=== PATIENT | female | born 1950 | race Caucasian/White ===

== ENCOUNTER 2017-07-29 13:39 | Emergency (ER) | payer OTHER ==
[~2017-07-29] VITALS: Ht 165.1 cm; Wt 67.9 kg
[~2017-07-29 13:39] MED LIST: ALBU1AER9 PO; ATEN-173 PO; DICL-201 PO; FLNIN NAE
[2017-07-29 13:45] VITALS: TEMP 36.7; Ht 165.1 cm; Wt 67.9 kg
[2017-07-29] MEDS ORDERED: XYLOCAINE 1%/SOD BICARB 20 ML VIAL INFIL ONE (14:15)
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
--- NOTE | 2017-07-29 14:20 | EMERGENCY ROOM VISIT NOTE ---
ED Visit Note First contact with patient: 13:50 I have personally seen and evaluated the patient with the physician family medicine physician assistant. I agree with the diagnostic/management decisions and have personally been involved in these decisions and agree with the diagnosis.
[2017-07-29 15:22] VITALS: BP 188/113; PULSE 65; O2SAT 96
== END 2017-07-29 15:23 | disposition home or self-care (01) ==
LOC: C.EDB 13:41 → C.EDD 15:23
DX: S61.211A Laceration without foreign body of left index finger without damage to nail, initial encounter (principal); W45.8XXA Other foreign body or object entering through skin, initial encounter; Y92.89 Other specified places as the place of occurrence of the external cause; Y99.0 Civilian activity done for income or pay; I10 Essential (primary) hypertension; D68.51 Activated protein C resistance; Z87.828 Personal history of other (healed) physical injury and trauma; Z79.899 Other long term (current) drug therapy; Z88.0 Allergy status to penicillin

== ENCOUNTER 2017-08-06 14:21 | Emergency (ER) | payer OTHER ==
[~2017-08-06] VITALS: Ht 165.1 cm; Wt 67.5 kg
[2017-08-06 14:23] VITALS: TEMP 36.7; Ht 165.1 cm; Wt 67.5 kg
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
[2017-08-06 14:54] VITALS: BP 169/97; PULSE 76; O2SAT 97
[2017-08-06] MEDS ORDERED: TNR25 PO (14:54)
[2017-08-06] MEDS ORDERED: GABA1CAP4 PO (14:54)
[2017-08-06] MEDS ORDERED: ASPI325T39 PO (14:54)
== END 2017-08-06 14:50 | disposition home or self-care (01) ==
LOC: C.EDB 14:22 → C.EDD 14:50
DX: S61.213D Laceration without foreign body of left middle finger without damage to nail, subsequent encounter (principal); X58.XXXD Exposure to other specified factors, subsequent encounter; I10 Essential (primary) hypertension; Z79.82 Long term (current) use of aspirin

== ENCOUNTER 2020-04-09 17:15 | Inpatient (IN) ==
[~2020-04-09 17:15] MED LIST changes: -ALBU1AER9 PO; -ATEN-173 PO; +ATROPINE SO4 1 MG/ML 1ML VIAL ONE; -DICL-201 PO; -FLNIN NAE
[2020-04-09] MEDS ORDERED: NiCARDipine HCL INJ 2.5 MG/ML 10 ML AMP ONE (17:26)
[2020-04-09] MEDS ORDERED: RAPID SEQUENCE INDUCTION BAG ONE (17:26)
[2020-04-09] MEDS ORDERED: HEPARIN (PORCINE) 1000 UNIT/ML 10 ML (CATH LAB USE ONLY) ONE (17:26)
[2020-04-09] MEDS ORDERED: fentaNYL citrate 100 MCG/2 ML VIAL ONE ×2 (17:27→18:13)
[2020-04-09] MEDS ORDERED: MIDAZOLAM HCL 1 MG/ML 2ML VIAL ONE ×2 (17:27→18:13)
[2020-04-09] MEDS ORDERED: NITROGLYCERIN/D5W 100MCG/ML 20ML SYR ONE (17:27)
[2020-04-09 17:32] LABS: Hematocrit (blood only) 40.4 % (37-47); Hemoglobin 13.8 g/dL (12.0-16.0); Mean Corpuscular Hemoglobin 31.2 pg (25-34); Mean Corpuscular Hgb Conc 34.2 g/dL (32-36); Mean Corpuscular Volume 91.2 fL (80-100); Mean Platelet Volume 11.4 fL (7.4-10.4); Platelet Count 378 K/uL (130-400); RDW Coefficient of Variation 13.4 % (11.5-14.5); RDW Standard Deviation 44.7 fL (36.4-46.3); Red Blood Count 4.43 M/uL (4.2-5.4); White Blood Count 12.08 K/uL (4.8-10.8)
[2020-04-09] MEDS ORDERED: LIDOCAINE HCL/D5W 2000 MG/500 ML BAG IV ONE (17:47)
[2020-04-09 17:49] LABS: Alanine Aminotransferase 29 U/L (12-78); Albumin Level 3.8 gm/dl (3.4-5.0); Aspartate Aminotransferase 16 U/L (15-37); BUN Creatinine Ratio 13.9 (10-20); Blood Urea Nitrogen 14 mg/dl (7-18); Calcium 9.2 mg/dl (8.5-10.1); Carbon Dioxide 23 mmol/L (21-32); Chloride 106 mmol/L (98-107); Est GFR (African American) 66.2; Est GFR (Non-African American) 57.2; Glucose 127 mg/dl (70-99); Lipase 291 U/L (73-393); Magnesium 2.3 mg/dl (1.8-2.4); Potassium 3.9 mmol/L (3.5-5.1); Sodium 139 mmol/L (136-145)
[2020-04-09] MEDS ORDERED: EPINEPHrine INJ 1 MG/ML AMP ONE (17:49)
[2020-04-09] MEDS ORDERED: NOREPINEPHRINE BITARTRATE 1 MG/ML 4 ML VIAL (CATH LAB USE ONLY) ONE ×3 (17:54→19:45)
[2020-04-09 17:59] LABS: Basophils # (auto) 0.06 K/uL (0-0.2); Basophils % (auto) 0.5 %; Eosinophils # (auto) 0.79 K/uL (0-0.5); Eosinophils % (auto) 6.5 %; Immature Granulocytes # (auto) 0.02 K/uL (0.00-0.02); Immature Granulocytes % (auto) 0.2 %; Lymphocytes # (auto) 5.97 K/uL (1.2-3.4); Lymphocytes % (auto) 49.4 %; Monocytes # (auto) 0.79 K/uL (0.11-0.59); Monocytes % (auto) 6.5 %; Neutrophils # (auto) 4.45 K/uL (1.4-6.5); Neutrophils % (auto) 36.9 %
[2020-04-09] MEDS ORDERED: AMIODARONE 150MG / 100ML D5W (CATH LAB USE ONLY) ONE (17:59)
[2020-04-09 18:01] LABS: Alkaline Phosphatase 97 U/L (45-117); Bilirubin,Total 0.2 mg/dl (0.2-1); Creatine Kinase 64 U/L (26-192); Creatine Kinase MB < 1.0 ng/ml (0.5-3.6); Globulin 3.9 gm/dl (2.5-4.0); Total Protein 7.7 gm/dl (6.4-8.2); Troponin I < 0.015 ng/ml (0-0.045)
--- NOTE | 2020-04-09 18:02 | Emergency Department Note ---
History of Present Illness General Stated complaint: HEART ALERT Source: patient and EMS Mode of arrival: EMS History of Present Illness Provider complaint: Chest pain Onset (ago): hour(s) (3:30 PM today while at work) Location: chest Radiation: non-radiation Severity: moderate Maximum Pain Intensity: 7 Current Pain Intensity: 6 Quality: + other (Tightness) Relieved By: + none Associated symptoms: + shortness of breath and + weakness; no cough, no fever/chills and no headaches This is a 70-year-old female with a history of hypertension and COPD who is a current smoker who presents with chest pain. She states the chest pain started at 3:30 PM today while at work. She describes it as a tightness in the middle of her chest without radiation. She has associated shortness of breath with it. She states it was 7 out of 10 in severity and she felt lightheaded as well. She felt as if she was going to pass out earlier today. She was given 25 mcg of fentanyl IV and Zofran IV in the ambulance. She was given another dose of 25 mcg of fentanyl IV subsequently. He stated that the pain was not much relieved and is currently a 6 out of 10. She denies any fever, cough or cold symptoms, known exposure to COVID-19, leg pain or swelling, abdominal pain or previous cardiac history. Home Medications Home Medications Medication Instructions Recorded Confirmed Type albuterol sulfate [ProAir HFA] 1 puff INHALATION Q6H PRN 06/15/19 11/27/19 History gabapentin 600 mg PO HS 06/15/19 11/27/19 History atenolol 50 mg PO DAILY 11/27/19 11/27/19 History tramadol 50 mg PO Q8H PRN #7 tab 11/28/19 Rx Allergies Allergy/AdvReac Type Severity Reaction Status Date / Time amoxicillin Allergy Mild RASH Verified 11/27/19 20:30 cefdinir Allergy Verified 11/27/19 20:30 diclofenac Allergy Verified 11/27/19 20:30 losartan Allergy Verified 11/27/19 20:30 Past Med/Surg History Medical History Chronic obstructive pulmonary disease inhaler prn Factor 5 Leiden mutation, heterozygous Hypertension (Acute) Nerve damage in neck---reason for gabapentin Surgical History History of laparoscopy History of left cataract surgery History of tooth extraction all teeth History of total hysterectomy with bilateral salpingo-oophorectomy (BSO) Status post decompression of ulnar nerve at elbow left Family History Daughter Family history of diabetes mellitus Hypertension Stroke Father Family hx of colon cancer Heart disease Colorectal cancer Mother Heart disease Breast cancer Other No family history of adverse response to anesthesia No family history of bleeding disorder Social History Preferred Language: Kenyan Communication Ability: Effective Professor Of Forestry Required: No Beliefs That Will Affect Care: None marital status: Current Living Situation: Spouse current occupational status: employed 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 and A total of 10 systems reviewed and were otherwise negative Physical Exam Vital Signs Vital Signs - 24 hr 04/09/20 17:53 04/09/20 17:54 04/09/20 18:14 Respiratory Rate 14 14 Fraction of Inspired Oxygen 100 100 Sepsis Recent Fever Within 48 Hours No Sepsis New/Unexplained Change in Mental Status No Sepsis Action Taken by Nursing No Action Required 04/09/20 18:50 04/09/20 19:20 Respiratory Rate 20 20 Fraction of Inspired Oxygen 100 Sepsis Recent Fever Within 48 Hours Sepsis New/Unexplained Change in Mental Status Sepsis Action Taken by Nursing Constitutional: Vital signs reviewed. Eyes: Pupils are equal round reactive to light. Conjunctiva are noninjected. ENT: Pharynx is clear without erythema or exudate. Mucous membranes are moist. Upper dentures. Neck supple without meningeal signs. Respiratory: Clear to auscultation bilaterally. Breath sounds are equal bilaterally. Cardiovascular: Regular rate and rhythm. No rubs or gallops. GI: Soft, nondistended and nontender. Bowel sounds are present. Musculoskeletal: No peripheral edema. No lower extremity tenderness. Integumentary: No cyanosis. or jaundice. She is pale. Neurological: The patient is awake and alert. No focal deficits. Psychiatric: Anxious appearing. Procedures Intubation Time out performed: No sedative: none paralytic: Succinylcholine Mg Given: 120 Laryngoscope: other ([place] scope) ET Tube Size: 7.5 ET Tube Uncuffed: No Tube Secured Depth (cm): 23 Tube Secured Location: lips Tube Placement Confirmation: visualized tube passing through cords, equal breath sounds bilaterally and confirmation by capnometry (Color) Patient Tolerated Procedure: no complications Intubation Complications: none Course Administered Medications Discontinued Medications Atropine Sulfate (Atropine Sulfate 1mg/Ml) Confirm Administered Dose 1 mg .ROUTE .STK-MED ONE Stop: 04/09/20 17:16 Last Admin: 04/09/20 17:50 Dose: Not Given Documented [place]: [id number] Lorazepam (Ativan) 1 mg in 2 mls @ 2 mls/min IV NOW STA Stop: 04/09/20 20:19 Last Admin: 04/09/20 20:48 Dose: 2 mls/min Documented by: [id number] Morphine Sulfate (Morphine Sulfate) Confirm Administered Dose 4 mg .ROUTE .STK- MED ONE Stop: 04/09/20 20:24 Last Admin: 04/09/20 20:36 Dose: 4 mg Documented by: [id number] Medical Decision Making Differential Diagnosis STEMI, ACS, CHF, inferior NJ, V. fib arrest Medical Records Attestation: I reviewed the patient's medical records. I did perform a limited focused review of portions of the patient's old chart on the electronic medical record. The patient has had no recent pertinent visits to this hospital. The patient was seen here earlier this year for flank pain. Home Medications Current Medication List: was personally reviewed by me Laboratory Data Attestation: I reviewed the patient's lab results. Result diagrams: 04/09/20 16:59 04/09/20 16:59 Lab Results 04/09/20 04/09/20 04/09/20 Range/Units 16:59 16:59 16:59 WBC 12.08 H (4.8-10.8) K/uL RBC 4.43 (4.2-5.4) M/uL Hgb 13.8 (12.0-16.0) g/dL POC Hgb (12.0-16.0) g/dl Hct 40.4 (37-47) % POC Hct (37-47) % MCV 91.2 (80-100) fL MCH 31.2 (25-34) pg MCHC 34.2 (32-36) g/dL RDW Std Deviation 44.7 (36.4-46.3) fL RDW Coeff of Juan Jose 13.4 (11.5-14.5) % Plt Count 378 (130-400) K/uL MPV 11.4 H (7.4-10.4) fL Immature Gran % (Auto) 0.2 % Neut % (Auto) 36.9 % Lymph % (Auto) 49.4 % Bel[place] % (Auto) 6.5 % Eos % (Auto) 6.5 % Baso % (Auto) 0.5 % Immature Gran # (Auto) 0.02 (0.00-0.02) K/uL Neut # (Auto) 4.45 (1.4-6.5) K/uL Lymph # (Auto) 5.97 H (1.2-3.4) K/uL [place] # (Auto) 0.79 H (0.11-0.59) K/uL Eos # (Auto) 0.79 H (0-0.5) K/uL Baso # (Auto) 0.06 (0-0.2) K/uL PT Cancelled INR Cancelled APTT Cancelled PTT Ratio Cancelled POC pH (7.35-7.45) POC pCO2 (35-46) mmHg POC pO2 (80-95) mmHg POC HCO3 (19-24) luis/L POC Total CO2 (24-31) mmol/L POC Base Excess (-9-1.8) luis/L POC ABG O2 Sat (90-95) % POC Sodium (135-144) mmol/L Sodium 139 (136-145) mmol/L POC Potassium (3.3-5.0) mmol/L Potassium 3.9 (3.5-5.1) mmol/L Chloride 106 (98-107) mmol/L Carbon Dioxide 23 (21-32) mmol/L Anion Gap 10.0 (3-11) BUN 14 (7-18) mg/dl Creatinine 1.01 (0.6-1.2) mg/dl Est Cr Clr Drug Dosing Not Reportable Est GFR ( Amer) 66.2 Est GFR (Non-Af Amer) 57.2 BUN/Creatinine Ratio 13.9 (10-20) Glucose 127 H (70-99) mg/dl Calcium 9.2 (8.5-10.1) mg/dl Magnesium 2.3 (1.8-2.4) mg/dl Total Bilirubin 0.2 (0.2-1) mg/dl AST 16 (15-37) U/L ALT 29 (12-78) U/L Alkaline Phosphatase 97 (45-117) U/L Total Creatine Kinase 64 (26-192) U/L CK-MB (CK-2) < 1.0 (0.5-3.6) ng/ml CK/CKMB % Calc TNP POC Troponin I (0-0.045) ng/ml Troponin I < 0.015 (0-0.045) ng/ml Total Protein 7.7 (6.4-8.2) gm/dl Albumin 3.8 (3.4-5.0) gm/dl Globulin 3.9 (2.5-4.0) gm/dl Albumin/Globulin Ratio 1.0 (0.9-2) Lipase 291 (73-393) U/L TSH 5.610 H (0.300-4.500) uIu/ml Free T4 1.21 (0.8-1.6) ng/dl 04/09/20 04/09/20 Range/Units 17:23 19:18 WBC (4.8-10.8) K/uL RBC (4.2-5.4) M/uL Hgb (12.0-16.0) g/dL POC Hgb 7.1 L (12.0-16.0) g/dl Hct (37-47) % POC Hct 21 L (37-47) % MCV (80-100) fL MCH (25-34) pg MCHC (32-36) g/dL RDW Std Deviation (36.4-46.3) fL RDW Coeff of Juan Jose (11.5-14.5) % Plt Count (130-400) K/uL MPV (7.4-10.4) fL Immature Gran % (Auto) % Neut % (Auto) % Lymph % (Auto) % [place] % (Auto) % Eos % (Auto) % Baso % (Auto) % Immature Gran # (Auto) (0.00-0.02) K/uL Neut # (Auto) (1.4-6.5) K/uL Lymph # (Auto) (1.2-3.4) K/uL [place] # (Auto) (0.11-0.59) K/uL Eos # (Auto) (0-0.5) K/uL Baso # (Auto) (0-0.2) K/uL PT INR APTT PTT Ratio POC pH 6.84 L* (7.35-7.45) POC pCO2 104 H (35-46) mmHg POC pO2 61 L (80-95) mmHg POC HCO3 18 L (19-24) luis/L POC Total CO2 21 L (24-31) mmol/L POC Base Excess -16.0 L (-9-1.8) luis/L POC ABG O2 Sat 64.0 L (90-95) % POC Sodium 148 H (135-144) mmol/L Sodium (136-145) mmol/L POC Potassium 3.4 (3.3-5.0) mmol/L Potassium (3.5-5.1) mmol/L Chloride (98-107) mmol/L Carbon Dioxide (21-32) mmol/L Anion Gap (3-11) BUN (7-18) mg/dl Creatinine (0.6-1.2) mg/dl Est Cr Clr Drug Dosing Est GFR ( Amer) Est GFR (Non-Af Amer) BUN/Creatinine Ratio (10-20) Glucose (70-99) mg/dl Calcium (8.5-10.1) mg/dl Magnesium (1.8-2.4) mg/dl Total Bilirubin (0.2-1) mg/dl AST (15-37) U/L ALT (12-78) U/L Alkaline Phosphatase (45-117) U/L Total Creatine Kinase (26-192) U/L CK-MB (CK-2) (0.5-3.6) ng/ml CK/CKMB % Calc POC Troponin I 0.03 (0-0.045) ng/ml Troponin I (0-0.045) ng/ml Total Protein (6.4-8.2) gm/dl Albumin (3.4-5.0) gm/dl Globulin (2.5-4.0) gm/dl Albumin/Globulin Ratio (0.9-2) Lipase (73-393) U/L TSH (0.300-4.500) uIu/ml Free T4 (0.8-1.6) ng/dl ECG Data Attestation: I personally reviewed and interpreted this ECG as follows: Indication: + chest pain Rate (beats per minute): 64 Rhythm: + normal sinus ECG Intervals/blocks: no Left bundle branch block ECG ST segments: + ST depression (Lateral) and + ST elevation (Inferior, anterior) ECG Findings: no PVCs Blood Pressure Blood Pressure Findings: Low blood pressure MDM Narrative I did provide prehospital medical command for the patient. The patient was given IV fentanyl 50 mcg and IV Zofran and 500 cc normal saline IV per my orders. I did call an immediate heart alert. I did immediately evaluate the patient on arrival as noted above. She is complaining of central chest pain she describes as a tightness. I did order a continuous cardiac monitoring. Cardiac monitoring: Indication: Chest pain and bradycardia Rate and rhythm: Normal sinus rhythm with a rate of 62 that deteriorated to ventricular tachycardia and then V. fib arrest. I did order and personally review the patient's 12-lead EKG as described above. She has ST elevations in the inferior and anterior leads with ST depressions in the high lateral leads. This is consistent with a STEMI. After the EKG was obtained the patient stated that she felt like she was in a pass out. She then went into ventricular tachycardia and then ventricular fibrillation. I immediately started chest compressions. The nurses placed pads on her and I did perform defibrillation. I did use 300 J. I did defibrillate her 4 times during her resuscitation. She briefly would have ROSC and then would immediately go into ventricular fibrillation. She would start to wake up briefly with chest compressions and then passed out as soon as they stopped. She was was given multiple doses of IV epinephrine during the resuscitation. She was placed on the Tl device. I also treated her with amiodarone 300 mg IV. I did perform rapid sequence intubation. I did order and review the patient's blood work as noted in the electronic medical record. Her White blood cell count was slightly elevated. Electrolytes are unremarkable. POC troponin is negative. Dr. Stokes of cardiology did arrive in the emergency department. He did take her to the cardiac catheterization lab emergently. I did escort her to the cardiac catheterization lab and stayed with her until Dr. Stokes arrived. I did hold CPR briefly and she was bradycardic in the 30s with no pulse and we resumed CPR with the Tl. Impression & Plan ST elevation (STEMI) myocardial infarction, Cardiopulmonary arrest, Ventricular fibrillation Discharge Plan Visit Data *Final* Discharge Date/Time: 04/09/20 17:45 Stated Complaint: HEART ALERT ED Provider: Raleigh Perez Discharge Problem: ST elevation (STEMI) myocardial infarction, Cardiopulmonary arrest, Ventricular fibrillation Patient Disposition: Still a Patient Discharge Instructions Interventions: ED Discharge Assessment Last Done: 04/09/20 17:45 Discharge Problem: ST elevation (STEMI) myocardial infarction Qualifiers: Involved coronary artery: unspecified coronary artery Qualified Code(s): I21.3 - ST elevation (STEMI) myocardial infarction of unspecified site
[2020-04-09 18:14] LABS: T4 Free Thyroxine 1.21 ng/dl (0.8-1.6)
[2020-04-09] MEDS ORDERED: VASOPRESSION #-# Do NOT Titrate #-# Option IV SCH (18:30)
[2020-04-09] MEDS ORDERED: SODIUM BICARB 8.4% INJ 50 MEQ/50 ML SYR ONE (18:49)
[2020-04-09] MEDS ORDERED: DOBUTamine 500MG / 250ML D5W (CATH LAB USE ONLY) ONE (18:58)
[2020-04-09 19:31] LABS: iSTAT Arterial Blood Gas HCO3 18 meg/L (19-24); iSTAT Arterial Blood Gas pCO2 104 mmHg (35-46); iSTAT Arterial Blood Gas pH 6.84 (7.35-7.45); iSTAT Arterial Blood Gas pO2 61 mmHg (80-95); iSTAT Carbon Dioxide 21 mmol/L (24-31); iSTAT Hematocrit 21 % (37-47); iSTAT Hemoglobin 7.1 g/dl (12.0-16.0); iSTAT Potassium 3.4 mmol/L (3.3-5.0); iSTAT Sodium 148 mmol/L (135-144)
--- NOTE | 2020-04-09 20:07 | Cardiac Catheterization ---
ACC Data: [facility] Cardiac Status Clinical evaluation leading to the procedure CAD Presenation: STEMI Anginal Classification: CCS IV Heart Failure: NYHA Class: CCS III Cardiogenic Shock within 24 Hours: Yes Cardiac Arrest within 24 Hours: Yes Imaging Studies Past 6 Months: No Stress Studies Past 6 Months: No Diagnostic Physicians Name: Brando Stokes MD Status: Emergency Closure Device Percutaneous Entry Location: Femoral Recommendations: PCI without planned CABG PCI Indication: Immediate PCI for STEMI Lesion Segment Name: mid RCA Culprit Artery: Yes Stenosis Prior to Rx (%): 100 Chronic Total Occlusion: No IVUS: No FFR: No Pre-Procedure SABIHA Flow: 0 Previously Treated Lesion: No Lesion Complexity: Non-High/Non-C Lesion Length (mm): 12 Thrombus Present: Yes Bifurcation Lesion: No Guidewire Across Lesion: No Lesion #2 Segment Name: mid circumflex Culprit Artery: No Stenosis Prior to Rx (%): 95 Chronic Total Occlusion: No IVUS: No FFR: No Pre-Procedure SABIHA Flow: 3 Previously Treated Lesion: No Lesion Complexity: Non-High/Non-C Lesion Length (mm): 12 Thrombus Present: No Bifurcation Lesion: No Guidewire Across Lesion: Yes Stenosis Post-Procedure (%): 0 Post-Procedure SABIHA Flow: 3 Devices(s) Deployed: Yes Intraprocedure Events Significant Disection: No Perforation: No Cardiac Cath Procedure Full Procedure Date April 09, 2020 Pre-Procedure Diagnosis Pre-Procedure Diagnosis: STEMI AUC Score AUC Score: 9 Post-Procedure Diagnosis Post-Procedure Diagnosis: Severe CAD Procedure(s) Performed Procedure(s) Performed: Coronary Angiography, Left Heart Cath, Drug Eluting Stent, Temporary Pacemaker, CPR, Defibrillation, Femoral Artery Angiography and Procedure (Impella CP placement) Double Reamer Operator Brando Stokes MD Nursing Educator(s) Neo Estimated Blood Loss Estimated Blood Loss: 20 Medication(s) Medication(s): Epinephrine, Heparin, Norepinephrine and Versed Medication(s): Vasopressin, dobutamine, sodium bicarbonate, calcium chloride, amiodarone, lidocaine Summary of Findings Indication: STEMI/Heart Alert Inferior GA with cardiac arrest in emergency department. Patient in refractory VT despite amiodarone, multiple defibrillations with CPR being performed by Philip as device on arrival to [facility] Access: 6 Fr right common femoral artery, 6 Fr left common femoral artery, 6 Fr right common femoral vein Catheters: JR4 guide, diagnostic JL4, EBU 3.5 guide, pigtail Findings: LM -medium caliber, calcified, luminal irregularities LAD -small caliber, diffuse mild proximal disease, severe diffuse up to 90% earlymid disease, 95% focal latemid stenosis, 95% distal LAD stenosis prior to vessel wrapping around apex. First diagonal with diffuse proximal disease Circumflex -medium caliber vessel, 95% focal distal stenosis RCA -dominant, medium caliber, 100% earlymid acute occlusion -- PCI -- Antithrombotic therapy: Heparin Procedure: Continued CPR Via Tl device. Right common femoral artery access obtained with 6 Fr sheath placed. Right WATERSHED MANAGER angiography revealed suitable vessel for follow-up. While prepping for Impella patient remained in VF despite additional defibrillation attempts, epi, lidocaine and additional amiodarone. Continued on lidocaine drip 14 Fr sheath placed and aortic valve crossed with pigtail. Heparin to ACT greater than 250 Impella CP placed across the aortic valve. Initially on auto level with suction alarms and cardiac output around 1. RCA cannulated with JR4 guide from left common femoral artery Bacteriology Teacher 50 wire passed across mid RCA lesion into distal vessel Mid RCA lesion predilated with 2.5 compliant balloon Dilated lesion stented with 2.75 x 33 mm Xience Carina drug-eluting stent Stent post-dilated with stent balloon. Stent well expanded with SABIHA-3 flow throughout RCA Post reestablished RCA flow did have return of bradycardic rhythm. Aortic pressures remain flat without pulsatility with maps in the 40s to 50s. Continued on epinephrine, norepinephrine, lidocaine infusions along with aggressive fluid resuscitation. Right common femoral vein access obtained and temporary pacing wire placed into RV. Angiography of left system revealed severe distal circumflex as well as multiple severe sequential lesions and LAD Left main cannulated with EBU 3.5 guide Bacteriology Teacher 50 wire placed into distal circumflex Distal circumflex stented with 2.5 x 15 mm Diego drug-eluting stent Able to increase Impella gradually to P8 with cardiac outputs up to 3.0 Bacteriology Teacher 50 wire removed from circumflex and placed down LAD Mid LAD and distal LAD lesions dilated with 2.0 and 2.5 balloon Mid LAD lesion stented with 2.25 x 12 mm Kingsley drug-eluting stent Proximal to mid LAD stented with 2.5 x 30 mm Diego drug-eluting stent Post stenting stents well expanded. SABIHA-3 flow with moderate residual distal LAD stenosis post angioplasty Despite revascularization and improve cardiac output via Impella minimal pulsatility noted on arterial tracings. Blood gases consistent with severe metabolic and respiratory acidosis. Persistent hypoxia despite 100% O2 and escalating PEEP. Patient noted to have fixed, dilated pupils was unresponsive to any stimul In the setting of prolonged V. fib arrest/inadequate perfusion, profound cardiogenic shock with multiorgan failure, apparent anoxic brain injury comfort measures were opted for after discussion with patient's . Impella was turned off and patient transported to ICU for additional comfort care. Summary: 1. Inferior STEMI 2. Cardiac arrest with refractory VF 3. Cardiogenic shock 4. Acute 100% earlymid RCA occlusion 5. Severe non-culprit multivessel CAD -80% earlymid LAD, 95% latemid, 95% distal LAD -95% distal circumflex 6. Hypoxic and hypercarbic respiratory failure 7. Complete heart block 8. Anoxic brain injury 9. Metabolic acidosis 10. Placement of Impella CP device 11. Transvenous temporary pacemaker placement 12. PCI of mid RCA with single JUAN (2.75 x 33 mm Xience Carina drug-eluting stent) 13. PCI of distal circumflex with single JUAN (2.5 x 15 mm Diego drug-eluting stent) 14. PCI of proximal to mid LAD (2.5 x 30 mm Diego), latemid LAD (2.25 x 15 Diego). -Angioplasty of distal LAD with 2.5 balloon Recommendations: Comfort care in accordance with patient/family wishes Hemodynamics Rest Ao:: -- Final Ao: -- LV: -- Recommendations Recommendations: PCI without planned CABG Specimens Specimens: None Radiation Exposure (mGy) 1428 Contrast (mls) 135 Disposition ICU I attest to the content of the Intraoperative Record and any orders documented therein. Any exceptions are noted below. copygramG Card Cath Procedure Codes Cardiac Catheterization Procedure 1: Cardiovascular Cath Procedures: 47294 Coronaries and LHC (+/-LV) Therapeutic Services & Ancillary Proc Procedure 1: Cardiovascular Tx and Anc Procedures: 15413 Insertion of Percutaneous Ventricular Assist Device Procedure 2: Cardiovascular Tx and Anc Procedures: 59134 Temp Pacer Insert Procedure 3: Cardiovascular Tx and Anc Procedures: 13342 Code Blue/CPR Procedure 4: Cardiovascular Tx and Anc Procedures: 33146 Cardioversion Moderate Sedation Procedure 1: Sedation/Anesthesia: 31066 Mod Sedation by the same physician;Init15 Min Child Age 5 & Up Stenting Procedure 1: Cardiovascular Stent Procedures: 30478 Perc transluminal revascularization of acute sub/total occl, aMI Procedure 2: Cardiovascular Stent Procedures: 59766 Ea addl branch of a major coronary artery Procedure 3: Cardiovascular Stent Procedures: 12551 Ea addl branch of a major coronary artery PG Care Time/CCT Total # of Minutes Spent Total Time Spent with Patient: Total time spent is greater than 50% in coordination of care (as documented) at patient's floor/unit and/or counseling patient:
--- NOTE | 2020-04-09 20:07 | Cardiology Consultation ---
Date of Consultation April 09, 2020 Assessment & Plan (1) Acute WA: Proceed to Transportation Inspector in the setting of inferior WA with cardiac arrest and refractory VF History of Present Illness Attending Physician: Brando Stokes MD History of Present Illness Mrs. Davis is a 70-year-old woman with a history of COPD, hypertension, tobacco abuse here with an acute inferior WA complicated by cardiac arrest. Per family report was increasingly confused earlier in the day. Approximately 1 hour prior to arrival endorse new chest pain. ECG in route showed inferior ST elevations and heart alert activated from the field. Upon arrival to ED patient initially alert but hypotensive to the 60s prior to VF arrest. VF refractory to at least 5 shocks in ED. Prior to intubation was still making neurologically purposeful movements with chest compressions. Intubated prior to departure for Transportation Inspector. Allergies Allergy/AdvReac Type Severity Reaction Status Date / Time amoxicillin Allergy Mild RASH Verified 11/27/19 20:30 cefdinir Allergy Verified 11/27/19 20:30 diclofenac Allergy Verified 11/27/19 20:30 losartan Allergy Verified 11/27/19 20:30 Home Medications Home Medications Medication Instructions Recorded Confirmed Type albuterol sulfate [ProAir HFA] 1 puff INHALATION Q6H PRN 06/15/19 11/27/19 History gabapentin 600 mg PO HS 06/15/19 11/27/19 History atenolol 50 mg PO DAILY 11/27/19 11/27/19 History tramadol 50 mg PO Q8H PRN #7 tab 11/28/19 Rx Patient History Medical History Chronic obstructive pulmonary disease inhaler prn Factor 5 Leiden mutation, heterozygous Hypertension (Acute) Nerve damage in neck---reason for gabapentin Surgical History History of laparoscopy History of left cataract surgery History of tooth extraction all teeth History of total hysterectomy with bilateral salpingo-oophorectomy (BSO) Status post decompression of ulnar nerve at elbow left Family History Daughter Family history of diabetes mellitus Hypertension Stroke Father Family hx of colon cancer Heart disease Colorectal cancer Mother Heart disease Breast cancer Other No family history of adverse response to anesthesia No family history of bleeding disorder Social History Preferred Language: Wolof Communication Ability: Effective Cylinder Head Assembler Required: No Beliefs That Will Affect Care: None marital status: Current Living Situation: Spouse current occupational status: employed 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 Feels Safe at Home: Yes Smoking Status: Current every day smoker Tobacco Type: cigarettes ; Age Started Using Tobacco: 39 ; packs per day: 0.5 ; Second Hand Exposure: Yes ( SMOKES) ; Hx Alcohol Use: No Hx Substance Use: No Review of Systems Review of Systems: Unobtainable due to reduced consciousness Physical Exam Constitutional: + mechanically ventilated and + overweight Cardiovascular: Heart Sounds: no murmur Extremities: no pedal edema Gastrointestinal (Abdomen): Percussion/Palpation: abdomen soft Skin: no rashes, warm and dry Results & Data ([facility]) Vital Signs (Past 12 Hours) Vital Signs Resp 04/09/20 17:54 14 PG Care Time/CCT Total # of Minutes Spent Total Time Spent with Patient: Total time spent is greater than 50% in coordination of care (as documented) at patient's floor/unit and/or counseling patient: Coding Level of Care Code 38038 Inpt Consult Level 5 Diagnoses Acute WA I21.9
[2020-04-09] MEDS ORDERED: LORazepam 1 MG/2 ML VIAL IV STA (20:18)
[2020-04-09] MEDS ORDERED: MoRPHine SULFATE 4 MG/ML 1 ML CARP\\VIAL IV STA (20:18)
[2020-04-09] MEDS ORDERED: MoRPHine SULFATE 4 MG/ML 1 ML CARP\\VIAL ONE (20:23)
[2020-04-09] MEDS ORDERED: ATROPINE SULFATE 1% OP SOLN 2 ML BTL SL PRN (20:38)
[2020-04-09] MEDS ORDERED: ONDANSETRON 4 MG OD TAB SL PRN (20:38)
[2020-04-09] MEDS ORDERED: LORazepam 0.5 MG/1 ML VIAL IV PRN (20:38)
[2020-04-09] MEDS ORDERED: STAT IV Infusion **Titration per Protocol STA (20:38)
[2020-04-09] MEDS ORDERED: ONDANSETRON INJ 2 MG/ML 2 ML VIAL IV PRN (20:38)
--- NOTE | 2020-04-09 20:40 | Critical Care Consultation ---
Date of Consultation April 09, 2020 Assessment & Plan (1) Cardiopulmonary arrest: Patient is an unfortunate 70-year-old female who presented as an acute ST segment elevation inferior myocardial infarction who arrested upon arrival in the emergency department. Patient underwent several rounds of high-quality ACLS with multiple rounds of medications and compressions. She was taken to the catheterization suite where she had significant multivessel disease which was all repaired. Despite this, the patient did not have significant return of [place] heart rhythm or function. Impella device was placed, but despite this, the patient had no [place] squeeze despite significant heroic interventions performed by interventional cardiology. I was contacted by interventional cardiology and made aware of patient and situation. He did asked that I reach out to [employer] [facility]. Nursing staff did reach out to [employer] [facility]. In the interim, Dr. Stokes did speak with the patient's and they agreed upon comfort measures at this point. Upon arrival in the ICU, I did have an extensive conversation with the patient's . He regretfully informs me that he had lost his daughter approximately 30 days ago and his is been very sad for the last month. He does note that they have had extensive conversations about end-of-life recently and he reports that she would absolutely not want to undergo any further intervention at this time. We did discuss that from a cardiovascular standpoint, the patient had no meaningful purposeful activity and certainly were concerned with severe state of anoxia as patient is demonstrating exam findings consistent with severe anoxia including fixed gaze and flaccid paralysis. At this point, the patient's wishes to proceed with comfort measures only. We did discuss treating the patient with morphine and Ativan as needed for air hunger and agitation. He is agreeable to this. He wishes to proceed promptly with compassionate extubation. After initial dose of IV morphine, patient was extubated. remained at bedside and was offered support throughout dying process. Patient ceased to breathe and was without heart activity at 2106. I had spoken with [employer] on 2 separate occasions. Patient's adamantly refused gift of life assessment as he reports that this would be against his 's wishes. [facility] understands. Patient pronounced at 2106. (2) ST elevation (STEMI) myocardial infarction: (3) Ventricular fibrillation: (4) Acute OR: Supervising Physician Co-Signing Physician Notes I have been advised of the situation via telephone. I agree with the documentation and management given the profound and unfortunate circumstances. History of Present Illness Attending Physician: Brando Stokes MD History of Present Illness Patient is a 70-year-old female with a significant past history of hypertension and smoking history who presented to the emergency department earlier this evening as a code heart alert. Patient arrested upon arrival in the emergency department. She underwent high-quality ACLS including chest compressions with Tl machine and multiple rounds of ACLS drugs. She was taken to the catheterization suite where she underwent PCI with JUAN to the RCA, PCI with JUAN to the distal circumflex, and PCI of proximal and mid to late LAD with JUAN x1. Patient required placement of Impella device to maintain forward flow. Despite successful coronary intervention and Impella device placement, the patient had no [place] heart movement. Concerns for anoxic injury as well as nonsurvivable cardiac condition. Discussed case with interventionalist. Did have nursing staff reach out to [facility]. Upon arrival in the ICU, the remains intubated. All other support devices had been turned off at the request of the patient's . At this point, the mirella mumtaz's requests to move forward with comfort measures only and for compassionate extubation. Patient unable to contribute to history of present illness. Allergies Allergy/AdvReac Type Severity Reaction Status Date / Time amoxicillin Allergy Mild RASH Verified 11/27/19 20:30 cefdinir Allergy Verified 11/27/19 20:30 diclofenac Allergy Verified 11/27/19 20:30 losartan Allergy Verified 11/27/19 20:30 Home Medications Home Medications Medication Instructions Recorded Confirmed Type albuterol sulfate [ProAir HFA] 1 puff INHALATION Q6H PRN 06/15/19 11/27/19 History gabapentin 600 mg PO HS 06/15/19 11/27/19 History atenolol 50 mg PO DAILY 11/27/19 11/27/19 History tramadol 50 mg PO Q8H PRN #7 tab 11/28/19 Rx Patient History Medical History Chronic obstructive pulmonary disease inhaler prn Factor 5 Leiden mutation, heterozygous Hypertension (Acute) Nerve damage in neck---reason for gabapentin Surgical History History of laparoscopy History of left cataract surgery History of tooth extraction all teeth History of total hysterectomy with bilateral salpingo-oophorectomy (BSO) Status post decompression of ulnar nerve at elbow left Family History Daughter Family history of diabetes mellitus Hypertension Stroke Father Family hx of colon cancer Heart disease Colorectal cancer Mother Heart disease Breast cancer Other No family history of adverse response to anesthesia No family history of bleeding disorder Social History Preferred Language: Guamanian Communication Ability: Effective Stopboard Assembler Required: No Beliefs That Will Affect Care: None marital status: Current Living Situation: Spouse current occupational status: employed 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 GENERAL - 70-year-old female appearing her stated age. Intubated. HEAD - NC/AT. EYES - Pupils dilated bilaterally with RIGHT sided gaze noted. EARS - No deformities of external structures noted on gross examination bilaterally. NOSE - Midline and without cyanosis. MOUTH/OROPHARYNX - ET Tube in place. NECK - Supple to palpation. No nuchal rigidity. LUNGS - Coarse breath sounds noted thoughout. CARDIAC - Heart sounds distant and faint. Difficult to assess. ABDOMEN - Abdominal contour obese without pulsations or visible masses. No bowel sounds appreciated all four quadrants. No tenderness, palpable masses, hepatosplenomegaly, or ascites noted. EXTREMITIES - Mottling noted throughout all four extremities. No discernable peripheral pulses. NEUROLOGIC - Cranial nerves II through XII grossly intact. Sensory intact to light touch throughout. PSYCH - RIGHT sided gaze noted. No purposeful movements. Does seem to withdraw her LUE without purpose. RUE flaccid. No cough or gag reflex. Not breathing above the ventilator. Results & Data Results & Data ([facility]) Vital Signs (Past 12 Hours) Vital Signs Resp 04/09/20 19:20 20 04/09/20 18:50 20 04/09/20 18:14 14 04/09/20 17:54 14 Coding Level of Care Code 57421 Inpt Consult Level 5 Diagnoses Cardiopulmonary arrest I46.9 ST elevation (STEMI) myocardial infarction I21.3 Involved coronary artery: unspecified coronary artery Ventricular fibrillation I49.01 Acute OR I21.9 Time Spent (min) 60 (1) ST elevation (STEMI) myocardial infarction Involved coronary artery: unspecified coronary artery Qualified Code(s): I21.3 - ST elevation (STEMI) myocardial infarction of unspecified site
[2020-04-09] MEDS ORDERED: MoRPHine SULF/NSS 250 MG/250 ML BTL IV SCH (20:45)
--- NOTE | 2020-04-09 21:13 | Death Pronouncement Note ---
Date of Service April 09, 2020 Pronouncement Note Admission Date Admission Date: April 09, 2020 Date and Time of Date of : 04/09/20 Time of : 21:07 PCOD Preliminary cause of : Cardiopulmonary arrest Contributing Factors (1) Acute OR: Hospital Course Hospital Course: Patient is an unfortunate 70-year-old female who presented as an acute ST segment elevation inferior myocardial infarction who arrested upon arrival in the emergency department. Patient underwent several rounds of high- quality ACLS with multiple rounds of medications and compressions. She was taken to the catheterization suite where she had significant multivessel disease which was all repaired. Despite this, the patient did not have significant return of [place] heart rhythm or function. Impella device was placed, but despite this, the patient had no [place] squeeze despite significant heroic interventions performed by interventional cardiology. I was contacted by interventional cardiology and made aware of patient and situation. He did asked that I reach out to [employer]. Nursing staff did reach out to [employer]. In the interim, Dr. Stokes did speak with the patient's and they agreed upon comfort measures at this point. Upon arrival in the ICU, I did have an extensive conversation with the patient's . He regretfully informs me that he had lost his daughter approximately 30 days ago and his is been ve ry sad for the last month. He does note that they have had extensive conversations about end-of-life recently and he reports that she would absolutely not want to undergo any further intervention at this time. We did discuss that from a cardiovascular standpoint, the patient had no meaningful purposeful activity and certainly were concerned with severe state of anoxia as patient is demonstrating exam findings consistent with severe anoxia including fixed gaze and flaccid paralysis. At this point, the patient's wishes to proceed with comfort measures only. We did discuss treating the patient with morphine and Ativan as needed for air hunger and agitation. He is agreeable to this. He wishes to proceed promptly with compassionate extubation. After initial dose of IV morphine, patient was extubated. remained at bedside and was offered support throughout dying process. Patient ceased to breathe and was without heart activity at 2107. I had spoken with [employer] on 2 separate occasions. Patient's adamantly refused gift of life assessment as he reports that this would be against his 's wishes. [employer] [facility] understands. Patient pronounced at 210. Additional Data Confirmation of : no pulse, no respirations, no heart sounds and pupils fixed and dilated Family: at bedside Attending/PCP notified?: No Attending physician: Brando Stokes MD Was code activated?: No Autopsy requested?: No insurance examiner notified?: Yes Organ bank notified?: Yes Advance directives: No Coding Level of Care Code D/C Day Management <30 mins Diagnoses Acute OR I21.9 Time Spent (min) 25
--- NOTE | 2020-04-09 21:20 | Discharge Summary ---
Date of Service April 09, 2020 Admission HPI Per Admitting Provider Mrs. Davis is a 70-year-old woman with a history of COPD, hypertension, tobacco abuse here with an acute inferior FL complicated by cardiac arrest. Per family report was increasingly confused earlier in the day. Approximately 1 hour prior to arrival endorse new chest pain. ECG in route showed inferior ST elevations and heart alert activated from the field. Upon arrival to ED patient initially alert but hypotensive to the 60s prior to VF arrest. VF refractory to at least 5 shocks in ED. Prior to intubation was still making neurologically purposeful movements with chest compressions. Intubated prior to departure for Turning And Beading Machine Operator. Discharge Data Consultations 04/09/20 20:02 Consult Pump Erector Helper Routine 04/09/20 20:38 Consult Case Management - Discharge Planning Routine Consult Palliative Care Routine Procedures Performed Operation Date: 04/09/20 17:20 Actual Procedures s Cineradiography w/Routine Exam - David Stokes MD p Aspiration/PCI w/JUAN for Stemi - MD seb Fletcher Cath, Coronaries ONLY (no LV) - David Stokes MD s Impella Insertion - MD seb Fletcher Temporary Transcutaneous Pacing - David Stokes MD s Drug Eluting Stent each ADDTL Vessel - David Stokes MD s Cardioversion - David Stokes MD Hospital Course (1) Acute FL: Presented to Turning And Beading Machine Operator in refractory VF with CPR ongoing via Tl device. Impella CP device placed. PCI to culprit mid RCA occlusion. PCI to severe distal circumflex and sequential mid, distal LAD lesions. Despite revascularization remained in profound cardiogenic shock with hypoxic/hypercarbic respiratory failure and evidence of severe anoxic brain injury. Poor prognosis discussed with patient's who opted for comfort measures for his in accordance with her previously stated wishes. Patient in ICU at 9:07 on 04/09/2020. Coding Level of Care Code D/C Day Management <30 mins Diagnoses Acute FL I21.9
[2020-04-09] MEDS ORDERED: AMIODARONE HCL INJ 50 MG/ML 3 ML VIAL IV ONE (22:09)
[2020-04-09] MEDS ORDERED: DEXTROSE 5% 100 ML BAG IV ONE (22:09)
[2020-04-09] MEDS ORDERED: SUCCINYLCHOLINE CHLORIDE 20 MG/ML 10 ML VIAL IV ONE (22:09)
[2020-04-10 14:57] LABS: iSTAT Arterial Blood Gas HCO3 8 meg/L (19-24); iSTAT Arterial Blood Gas pCO2 78 mmHg (35-46); iSTAT Arterial Blood Gas pH 6.64 (7.35-7.45); iSTAT Arterial Blood Gas pO2 69 mmHg (80-95); iSTAT Carbon Dioxide 11 mmol/L (24-31); iSTAT Hematocrit 20 % (37-47); iSTAT Hemoglobin 6.8 g/dl (12.0-16.0); iSTAT Potassium 3.1 mmol/L (3.3-5.0); iSTAT Sodium 147 mmol/L (135-144)
--- NOTE | 2020-04-10 15:42 | Electrocardiogram Report ---
Test Reason : Blood Pressure : / mmHG Vent. Rate : 064 BPM Atrial Rate : 064 BPM P-R Int : 188 ms QRS Dur : 088 ms QT Int : 474 ms P-R-T Axes : 056 -18 115 degrees QTc Int : 489 ms Sinus rhythm with Premature atrial complexes with Aberrant conduction Possible Left atrial enlargement ST elevation consider inferior injury or acute infarct ST elevation consider anterior injury or acute infarct ACUTE PR / STEMI Consider right ventricular involvement in acute inferior infarct Abnormal ECG When compared with ECG of 27-NOV-2019 19:43, ST elevation now present in Inferior leads ST more depressed Lateral leads T wave inversion more evident in Lateral leads Confirmed by Brando Diaz ([id number]) on 04/10/2020 3:41:54 PM Referred By: REFERRED SELF Confirmed By:Erik Diaz
== END 2020-04-09 22:10 | disposition expired | DRG 215 ==
LOC: ED 17:15 → CC 17:44 → 1E 17:45
PROC: CLB.CCO (2020-04-09 17:20)
PROC: CLB.TTP (2020-04-09 17:20)